=== PATIENT | female | born 1995 | race American Indian/Alaskan Native ===

== ENCOUNTER 2016-12-17 01:07 | Emergency (ER) | payer OTHER ==
[2016-12-17 02:22] VITALS: BMI 38.6
[2016-12-17] MEDS ORDERED: Lactated Ringer's 1,000 ML IV ONE (02:24)
[2016-12-17 02:44] LABS: RBC URINE 1 /hpf (0-3); URINE BACTERIA RARE (<OCC); URINE BILIRUBIN NEGATIVE (NEGATIVE); URINE BLOOD NEGATIVE (NEGATIVE); URINE COLOR Yellow (YELLOW); URINE GLUCOSE (UA) NORMAL (Normal); URINE KETONE TRACE mg/dL (NEGATIVE); URINE LEUKOCYTE ESTERASE NEG Leu/uL (Negative); URINE PROTEIN 1+ mg/dL (NEGATIVE); URINE UROBILINOGEN NORMAL mg/dL (0.2-1.0); WBC URINE 4 /hpf (0-5)
--- NOTE | 2017-01-03 20:05 | OBHP ---
Datetime: 12/17/2016 02:27 IP Adm Impression: , intrauterine ; No Active Labor; Intact Membranes IP Admit Plan: Observation/Evaluation; Discharge home Admit Comment, IP Provider: 21 yo , LMP unsure, JONATHAN 01/12/17, EGA 36w 2d c/o Ctx "all day", w orsened at 2300 hours; pain scale 6/10. Now, 8/10. Described as constant pressure with intermitent sh javier pain. (+) AFM; Denies LOF, VB. Last had sexual intercourse 2 days ago. care: Dr. Isaura brooks; last visit 12/16/16. 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 Denies STIs PMH: bronchitis, first diagnosed 2009 PSH: D_C NKDA Meds: PNV Soc Hx: denies tobacco, illicit drug or EtOH use. With FOB x 2 years. Lives with her mother Fam Hx: Mother alive 46 - HTN. Father alive 50 - HTN. MGM - alive - Breast CA survivor P.E.: as above. Obese, in NAD. Awake, alert, oriented to time, person and place. Pleasant and coop erative. Accompanied by FOB and her mother Assessment: 21 yo P0010, 36w 2d, no cervical dilatation; R/O UTI. Category 1 tracing. Clinically s table. Plan: 1) U/A 2) IV hydration 3) Observe U/A: negative Discharge patient home - reviewed S/S PTL - Keep all scheduled appointments Will advise Dr. Ribeiro Pelvic Type - PN: Adequate Extremities - PN: Normal Abdomen - PN: Normal Back - PN: Normal Breast - PN: Not Done Lungs - PN: Normal Heart - PN: Normal Thyroid - PN: Not Done Neurologic - PN: Normal HEENT - PN: Normal General - PN: Normal Presentation-Admit: Vertex FHR - Baseline A Provider: 130 Contraction Comments Provider: occasional Comments, ACOG Physical Exam: Skin: warm, dry, intact HEENT: full ROM Lungs: CTA bilaterally Cardiac: RRR, normal S1, S2 Abdomen: Gravid. Soft. +/- suprapubic tnederness : no masses or discharge Extremities: trace pedal edema bilaterally, no calf tenderness All other systens reviewed and are negative Gestation - Est Wks by US: 36w 2d Vital Signs Provider: Reviewed NICHD Variability Prov Fetus A: Moderate 6-25bpm NICHD Accel Fetus A IP Provider: 15X15 FHR Category Provider Fetus A: Category I NICHD Decel Fetus A IP Provider: None Dilatation, Provider: FT Effacement, Provider: 0 Station, Provider: high Genitourinary Exam: Normal DTRs - PN: Not Done
== END 2016-12-17 03:18 | disposition home or self-care (01) ==
LOC: C.EROB 01:07
DX: O47.03 False labor before 37 completed weeks of gestation, third trimester (principal); Z3A.36 36 weeks gestation of pregnancy
CPT/HCPCS: 81001; 99283; J7120

== ENCOUNTER 2017-01-03 20:12 | Emergency (ER) | payer OTHER ==
[2017-01-03 20:24] VITALS: BMI 39.3
--- NOTE | 2017-01-03 20:53 | OBHP ---
Datetime: 01/03/2017 20:46 IP Adm Impression: Term, intrauterine ; No Active Labor IP Admit Plan: Discharge home Admit Comment, IP Provider: chief complaint-contractions HPI [age] yo , LMP unsure, JONATHAN 01/12/17, EGA at 38.2 wga with c/o Ctx since last night.Marquis es vaginal bleeding or loss of fluid.reports (+) AFM; Denies LOF, VB. Was 1 cm dilated on last exam care: Dr. 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 Denies STIs PMH: bronchitis, first diagnosed 2009 PSH: D_C NKDA Meds: PNV Soc Hx: denies tobacco, illicit drug or EtOH use. With FOB x 2 years. Lives with her mother Fam Hx: Mother alive 46 - HTN. Father alive 50 - HTN. MGM - alive - Breast CA survivor P.E.: as above. Obese, in NAD. Awake, alert, oriented to time, person and place. Pleasant and coop erative. Accompanied by FOB and her mother Assessment: 21 yo P0010 at 38.2 wga.Patient states she was 1 cm dilated in office.Minimal change.D iscussed false labor -patient given active labor precautions Discussed with Dr Delarosa Pelvic Type - PN: Adequate Extremities - PN: Normal Abdomen - PN: Normal Back - PN: Normal Lungs - PN: Normal Heart - PN: Normal Neurologic - PN: Normal General - PN: Normal Contraction Comments Provider: ocassional Comments, ACOG Physical Exam: General nad abdomen gravid; non tender Vulva no lesions vagina no lesions Cervix 1-2/50/-2 Uterus garvid adnexa no adnexal tenderness Gestation - Est Wks by US: 38.5 IP Hx Assessment: The History has been Reviewed and is Current EGA AdmitDate IP: 38.5 Vital Signs Provider: Reviewed; Within Normal Limits IP Chief Complaint: Uterine contractions FHR Category Provider Fetus A: Category I Dilatation, Provider: 1-2 Effacement, Provider: 50 Station, Provider: -2 Genitourinary Exam: Normal DTRs - PN: Normal
--- NOTE | 2017-01-07 08:35 | OBPPN ---
Datetime: 01/07/2017 08:33 PP Pain Prov: Within normal limits PP Nausea Prov: Denies PP Flatus Prov: Yes PP Breasts Prov: Normal PP Heart Prov: Normal PP Lungs Prov: Normal PP Abdomen/Uterus Prov: Normal PP Lochia Prov: Normal PP Vulva/Perineum Prov: Normal PP CVA Tenderness Prov: Normal PP Extremities Prov: Normal PP Progress Prov: Normal PP Comments Phys Exam Prov: ABD: Soft, NT, BS- present UT- Firm PP Impression Prov: Normal progression PP Plan Prov: Discharge IP PP Procedures: Rhogam Vital Signs Provider PP: Reviewed Datetime: 01/06/2017 08:31 PP Progress Note Prov: S/P , CLinically STable. Plan: Continue care.
--- NOTE | 2017-01-07 08:36 | OBPPN ---
Datetime: 01/07/2017 08:33 PP Progress Note Prov: S/P , CLinically STable. PLan: Discharge.
--- NOTE | 2017-01-07 08:38 | OBDCSUM ---
Datetime: 01/07/2017 08:08 Discharged to, Provider: Home Follow up at, Provider: DR. Ribeiro Disch Instr Activity: May be up to bathroom; May be up for meals; May Shower Disch Instr Diet: Regular Discharge Diet restrict Prov: none Discharge Instructions, Provider: Routine instructions given Discharge Diagnosis, Provider: Term Delivered Discharge Time: 01/07/2017 11:00 Follow up in weeks, Provider: 6 weeks Disch Referrals: None Contraception discussed, Prov: Yes Disch Activity Restrictions: No lifting; No sexual activity; Nothing in vagina - [place], tampon s, douche Discharge Comment, Provider: S/P Uncomplicated , Clinically Stable Discharge Diagnosis Prov Other: S/P Uncomplicated , Clinically Stable Contraception after Delivery: Undecided
== END 2017-01-03 20:46 | disposition home or self-care (01) ==
LOC: C.EROB 20:12
DX: O47.1 False labor at or after 37 completed weeks of gestation (principal); Z3A.38 38 weeks gestation of pregnancy

== ENCOUNTER 2017-01-04 17:03 | Inpatient (IN) | payer OTHER ==
[2017-01-03 20:24] VITALS: BMI 39.3
--- NOTE | 2017-01-04 17:28 | OBADHP ---
Datetime: 01/04/2017 17:23 Admit Comment, IP Provider: at 38.6weeks came with ctxs started yesterday, irrg 06/27.pt was he re yesterday night for the same. obhx primi pmh denies med pnv all nkda psh denies soh denies ve /-3 a/p at 38.6weeks in labor admit to l_d npo/ivf labs cont ysabel and efm pain management anticipate Pelvic Type - PN: Adequate Extremities - PN: Normal Abdomen - PN: Normal Back - PN: Normal Breast - PN: Not Done Lungs - PN: Normal Heart - PN: Normal Thyroid - PN: Not Done Neurologic - PN: Normal HEENT - PN: Normal General - PN: Normal FHR - Baseline A Provider: 130 Contraction Comments Provider: q1-4 Comments, ACOG Physical Exam: gravid,non tender et no edema,no calf ten /-3 IP Hx Assessment: The History has been Reviewed and is Current Vital Signs Provider: Reviewed; Within Normal Limits IP Chief Complaint: Uterine contractions NICHD Variability Prov Fetus A: Moderate 6-25bpm NICHD Accel Fetus A IP Provider: 15X15 FHR Category Provider Fetus A: Category I Dilatation, Provider: 2 Effacement, Provider: 100 Station, Provider: -3 Genitourinary Exam: Normal DTRs - PN: Normal EGA AdmitDate IP: 38.6 IP Adm Impression: Term, intrauterine ; Active labor; Intact Membranes IP Admit Plan: Admit to unit; Initiate labor protocol Datetime: 01/03/2017 20:46 Gestation - Est Wks by US: 38.5 Datetime: 12/17/2016 02:27 Presentation-Admit: Vertex NICHD Decel Fetus A IP Provider: Oracio
[2017-01-04] MEDS ORDERED: Lactated Ringer's 1,000 ML IV SCH (17:30)
[2017-01-04] MEDS ORDERED: Nalbuphine 20 mg/ml Inj (1 ml) IVP PRN ×2 (17:45→23:45)
[2017-01-04 18:23] LABS: BASO # 0.1 K/uL (0.0-0.2); BASO % 0.5 % (0.0-2.0); EOS % 0.3 % (0.0-4.0); MEAN CORPUSCULAR HEMOGLOBIN 23.1 pg (27.0-31.0); MEAN CORPUSCULAR HGB CONC 32.6 g/dL (33.0-37.0); MEAN PLATELET VOLUME 7.7 fL (7.2-11.7); MONO # 1.3 K/uL (0.0-0.8); MONO % 8.8 % (0.0-10.0); RED CELL DISTRIBUTION WIDTH 15.6 % (11.5-14.5); WHITE BLOOD COUNT 15.2 K/uL (4.8-10.8)
[2017-01-04 18:29] LABS: CHLORIDE 104 mmol/L (98-107)
[2017-01-04 18:30] LABS: SODIUM 137 mmol/L (132-148)
[2017-01-04 18:31] LABS: POTASSIUM 3.7 mmol/L (3.6-5.2)
[2017-01-04 18:33] LABS: ALB/GLOB RATIO 1.1 (1.0-2.1); ALKALINE PHOSPHATASE 127 U/L (38-126); AST/SGOT 19 U/L (14-36); BILIRUBIN,TOTAL 0.2 mg/dL (0.2-1.3); BLOOD UREA NITROGEN 7 mg/dL (7-17); CARBON DIOXIDE 23 mmol/L (22-30); GFR AFRICAN-AMERICAN > 60; TOTAL PROTEIN 6.9 g/dL (6.3-8.3)
[2017-01-04 18:34] LABS: ALT/SGPT 24 U/L (9-52); CALCIUM 8.6 mg/dl (8.6-10.4); GLUCOSE,RANDOM 73 mg/dL (65-105)
[2017-01-04 18:40] LABS: RBC URINE 3 /hpf (0-3); URINE BACTERIA FEW (<OCC); URINE BILIRUBIN NEGATIVE (NEGATIVE); URINE BLOOD NEGATIVE (NEGATIVE); URINE COLOR Yellow (YELLOW); URINE GLUCOSE (UA) NORMAL (Normal); URINE KETONE NEGATIVE (NEGATIVE); URINE LEUKOCYTE ESTERASE 2+ Leu/uL (Negative); URINE PROTEIN NEGATIVE (NEGATIVE); WBC URINE 61 /hpf (0-5)
[2017-01-04] MEDS ORDERED: Nalbuphine 20 mg/ml Inj (1 ml) ONE (18:44)
--- NOTE | 2017-01-05 00:13 | OBPN ---
Datetime: 01/05/2017 00:10 IP Progress Impression: Normal progression of labor IP Procedures: Sterile Vag Exam FHR - Baseline A Provider: 130 IP Progress Note Comment: pt was examined at bed side ve 4/100/-3 nun/phen anticipate NICHD Accel Fetus A IP Provider: 15X15 FHR Category Provider Fetus A: Category I NICHD Variability Prov Fetus A: Moderate 6-25bpm Dilatation, Provider: 4 Effacement, Provider: 100 Station, Provider: -3 Datetime: 01/04/2017 17:23 IP Informed Consent Obtain: Vaginal Delivery Contraction Comments Provider: q1-4 Vital Signs Provider: Reviewed; Within Normal Limits Datetime: 01/03/2017 20:46 Gestation - Est Wks by US: 38.5 Datetime: 12/17/2016 02:27 Presentation-Admit: Vertex NICHD Decel Fetus A IP Provider: None
[2017-01-05] MEDS ORDERED: Oxytocin 30 UNIT 500 ML IV ONE (04:49)
[2017-01-05] MEDS ORDERED: Oxytocin 30 UNIT 500 ML IV PRN (05:00)
--- NOTE | 2017-01-05 07:57 | OBPN ---
Datetime: 01/05/2017 07:53 IP Progress Impression: Normal progression of labor; Reassuring heart rate IP Procedures: Artificial ROM IP Progress Plan: Continue present management; Augmentation Membranes, Provider: Ruptured Amniotic Fluid Color, Provider: Meconium, Light FHR - Baseline A Provider: 130 Gestation - Est Wks by US: 39.0 Presentation-Admit: Vertex IP Progress Note Comment: IUP at 39wks in Labor, Reassuring heart Rate Tracing Plan: Epidural Continue Monitoring. NICHD Accel Fetus A IP Provider: 15X15 FHR Category Provider Fetus A: Category I NICHD Variability Prov Fetus A: Moderate 6-25bpm NICHD Decel Fetus A IP Provider: None
[2017-01-05] MEDS ORDERED: Bupivacaine 0.125%/FentaNYL 200 ML EPI ONE (08:02)
--- NOTE | 2017-01-05 13:55 | OBDS ---
DELIVERY PERSONNEL Delivery Doctor: Conrad Ribeiro MD Anesthesiologist: Dr. Ribeiro MATERNAL INFORMATION Provider Comments: Uncomplicated Spontaneous vaginal delivery of a viable infant with weight o f 7Ibs 2 ozs and scores of 9 and 9. Light meconium staining. LABOR SUMMARY EDC: 01/12/2017 00:00 No. Babies in Womb: 1 Attempted: No Labor Anesthesia: Epidural LABOR INFORMATION Reason for Induction: Not Applicable Onset of Labor: 01/02/2017 17:00 Oxytocin: Augmentation Group B Beta Strep: Negative MEMBRANES Membranes Rupture Method: Artificial Rupture of Membranes: 01/05/2017 07:50 Length of Rupture (hrs): 5.83 Amniotic Fluid Color: Heavy Meconium Amniotic Fluid Amount: Moderate Amniotic Fluid Odor: Normal STAGES OF LABOR Stage 3 hrs: 0 Stage 3 min: 6 Total Time in Labor hrs: 68 Total Time in Labor min: 46 VAGINAL DELIVERY Episiotomy: None Laceration Extension: First Degree Other Laceration: periureathral 1cm non bleeding Laceration Repair: No Initial Vag Sponge Count: 10 Final Vag Sponge Count: 10 Initial Vag Sharps Count: 0 Final Vag Sharps Count: 0 Sponge Count Correct: Yes Sharps Count Correct: N/A BABY A INFORMATION Delivery Date/Time: 01/05/2017 13:40 Method of Delivery: Vaginal Born in Route : No : N/A Forceps: N/A Vacuum Extraction: N/A Shoulder Dystocia : No SHOULDER DYSTOCIA BABY A Delivery Date/Time: 01/05/2017 13:40 PRESENTATION/POSITION BABY A Presentation: Cephalic Cephalic Presentation: Vertex Vertex Position: Left Occipital Anterior Breech Presentation: N/A PLACENTA INFORMATION BABY A Placenta Delivery Time : 01/05/2017 13:46 Placenta Method of Delivery: Spontaneous Placenta Status: Delivered SCORES BABY A Heart Rate 1 min: >100 bpm Resp Effort 1 min: Good Cry Reflex Irritability 1 min: Cough or Sneeze or Pulls Away Muscle Tone 1 min: Active Motion Color 1 min: Body Oblong, Extremities Blue SCORE 1 MIN: 9 Heart Rate 5 min: >100 bpm Resp Effort 5 min: Good Cry Reflex Irritability 5 min: Cough or Sneeze or Pulls Away Muscle Tone 5 min: Active Motion Color 5 min: Body Oblong, Extremities Blue SCORE 5 MIN: 9 INFORMATION BABY A Gestational Age at Delivery: 39.0 Gestational Status: Term Infant Outcome : Liveborn Condition : Stable Infant Sex: Female IDENTIFICATION/MEDS BABY A ID Band Number: [id number] ID Band Location: Left Leg; Left Arm Sensor Applied: Yes Sensor Number: [id number] Sensor Location : Cord Clamp Vitamin K Given : Not Given Erythromycin Given: Not Given WEIGHT/LENGTH BABY A Birthweight (gms): 3245 Weight (lb): 7 Weight (oz): 2 Infant Length Inches: 20.00 Length cms: 50.8 CORD INFORMATION BABY A No. Cord Vessels: 3 Nuchal Cord : N/A Cord Blood Taken: Yes Suction: Mouth; Nose
[2017-01-06 07:17] LABS: BASO # 0.1 K/uL (0.0-0.2); BASO % 0.5 % (0.0-2.0); EOS # 0.1 K/uL (0.0-0.7); EOS % 0.8 % (0.0-4.0); HEMATOCRIT 30.9 % (34.0-47.0); LYMPH # 2.2 K/uL (1.0-4.3); LYMPH % 15.6 % (20.0-40.0); MEAN CELL VOLUME 72.2 fL (81.0-99.0); MEAN CORPUSCULAR HEMOGLOBIN 22.8 pg (27.0-31.0); MEAN CORPUSCULAR HGB CONC 31.6 g/dL (33.0-37.0); MEAN PLATELET VOLUME 7.7 fL (7.2-11.7); MONO # 1.4 K/uL (0.0-0.8); MONO % 9.6 % (0.0-10.0); RED CELL DISTRIBUTION WIDTH 16.3 % (11.5-14.5); WHITE BLOOD COUNT 14.3 K/uL (4.8-10.8)
[2017-01-06 16:10] VITALS: O2SAT 99
[2017-01-07 08:06] VITALS: BP 111/76; PULSE 72; RESP 18; TEMP 97.2
== END 2017-01-07 12:20 | disposition home or self-care (01) | DRG 775 ==
LOC: C.EROB 17:03 → C.4D 17:31 → C.4M 01-05 14:30
PROVIDERS: ADMIT Obstetrics & Gynecology; ATTEND Obstetrics & Gynecology
PROC: 10E0XZZ Delivery of Products of Conception, External Approach (ICD-10-PCS; principal; 2017-01-05)
PROC: 0HQ9XZZ Repair Perineum Skin, External Approach (ICD-10-PCS; 2017-01-05)
PROC: 10907ZC Drainage of Amniotic Fluid, Therapeutic from Products of Conception, Via Natural or Artificial Opening (ICD-10-PCS; 2017-01-05)
DX: O77.0 Labor and delivery complicated by meconium in amniotic fluid (principal); O41.1230 Chorioamnionitis, third trimester, not applicable or unspecified; O70.0 First degree perineal laceration during delivery; Z3A.39 39 weeks gestation of pregnancy; Z37.0 Single live birth

== ENCOUNTER 2018-02-18 01:29 | Emergency (ER) | payer OTHER, MEDICAID ==
[2018-02-18 01:30] VITALS: BMI 39.3
--- NOTE | 2018-02-18 01:46 | C.PDOC ---
History Of Present Illness 22 yo female, LNMP 06/19/17, 8 wks , no post- care, PMHx of seasonal allergy, come in for evaluation of body itchiness associated with throat irritation developed since 4 PM yesterday (02/17/18) after had Upper Sor[place] food. Pt sts, "took Benadryl at home and felt better, and then fell asleep. Woke up now, feeling congested and my throat feel more scratchy". Otherwise, pt denies fever, chills, recent illness, headache, dizziness, throat swelling or tightness, dyspnea, drooling, cough, wheezing, abd. pain, V/D, denies recent travel or known sick contact, denies previous hx of allergy. Ambulate to Ed for evaluation, not in resp distress. Time Seen by Provider: 02/18/18 01:32 Chief Complaint (Nursing): Allergic Reaction History Per: Patient Past Medical History Reviewed: Historical Data, Nursing Documentation, Vital Signs Vital Signs: Last Vital Signs Temp 98.1 F 02/18/18 03:45 Pulse 88 02/18/18 03:45 Resp 16 02/18/18 03:45 BP 128/78 02/18/18 03:45 Pulse Ox 97 02/18/18 03:45 - Medical History PMH: No Chronic Diseases - [facility] Procedures DELIVERY OF PRODUCTS OF CONCEPTION, EXTERNAL APPROACH (01/04/17) DRAINAGE OF AMNIOTIC FL, THERAP FROM POC, VIA OPENING (01/04/17) REPAIR PERINEUM SKIN, EXTERNAL APPROACH (01/04/17) Family History: States: Unknown Family Hx - Social History Hx Tobacco Use: No Hx Alcohol Use: No Hx Substance Use: No - Immunization History Hx Tetanus Toxoid Vaccination: No Hx Influenza Vaccination: No Hx Pneumococcal Vaccination: No Review Of Systems Except As Marked, All Systems Reviewed And Found Negative. Constitutional: Negative for: Fever, Chills Eyes: Negative for: Vision Change ENT: Positive for: Nose Discharge, Nose Congestion, Throat Pain. Negative for: Ear Discharge, Mouth Swelling Cardiovascular: Negative for: Chest Pain, Palpitations, Edema, Light Headedness Respiratory: Negative for: Cough, Shortness of Breath, Sputum, Wheezing Gastrointestinal: Negative for: Nausea, Vomiting, Abdominal Pain, Diarrhea Skin: Negative for: Rash Neurological: Negative for: Altered Mental Status, Headache, Dizziness Physical Exam - Physical Exam Appears: Well, Non-toxic, No Acute Distress Skin: Normal Color, Warm, Dry, No Rash Head: Normacephalic Eye(s): bilateral: PERRL Nose: No Flaring Oral Mucosa: Moist Tongue: No Swelling Lips: No Swelling Throat: No Drooling, Other (uvula midline, no edema.) Neck: Trachea Midline, Supple Cardiovascular: Rhythm Regular, No Murmur, No JVD, Other ((-) carotid bruits B/L ) Respiratory: No Decreased Breath Sounds, No Accessory Muscle Use, No Rales, No Stridor, No Wheezing Gastrointestinal/Abdominal: Soft, No Tenderness, Other (Gravid) Back: No CVA Tenderness Extremity: Normal ROM, No Pedal Edema, No Deformity, No Swelling Neurological/Psych: Oriented x3, Normal Speech ED Course And Treatment O2 Sat by Pulse Oximetry: 98 Pulse Ox Interpretation: Normal Progress Note: On re-evaluation, pt is afebrile, hemodynamicaly stable. Non- toxic. Tolerate Po well in ED. PuslEOx 98% RA. Neck: Supple, (-) JVD, (-) carotid bruits B/L. ENT: no acute findings. Uvula midline, no edema. Lungs: CTA B/L, BS equal B/L. ABd: Gravid. Neurologicaly intact. Pt has clinical findings c/w food allergy, late . results review with patient, recommend transfer to L&D for further evaluation/monitoring. Pt agrees with plan. Pt is stable for transfer to L&D now. Disposition - Disposition Disposition: HOME/ ROUTINE Disposition Time: 03:03 Condition: STABLE Forms: [facility] (Eritrean) - Clinical Impression Clinical Impression: , Angioedema
[2018-02-18] MEDS ORDERED: DiphenhydrAMINE 50 mg/ml Inj ONE ×2 (01:52→02:34)
[2018-02-18] MEDS ORDERED: DiphenhydrAMINE 50 mg/ml Inj IVP STA (01:59)
[2018-02-18] MEDS ORDERED: Sodium Chloride 0.9% 1,000 ML IV ONE (02:25)
[2018-02-18] MEDS ORDERED: Sodium Chloride 0.9% 1,000 ML ONE (02:40)
--- NOTE | 2018-02-18 04:40 | OBHP ---
Datetime: 02/18/2018 04:31 IP Adm Impression: , intrauterine IP Chief Complaint Other: nst Admit Comment, IP Provider: at 31+weeks edc 04/16/18 ?? by lmp conor for nst fafter allergic reac tion to upper sorbian food, no ctxs,vb, lof+fm obhx 1 x pmh de med nv all nkda psh de soch de ve closed a/p at 31+weks her for nst for allergic reaction dc home ptl given po hy f/u in dr robles office Pelvic Type - PN: Adequate Extremities - PN: Normal Abdomen - PN: Normal Back - PN: Normal Breast - PN: Normal Lungs - PN: Normal Heart - PN: Normal Thyroid - PN: Normal Neurologic - PN: Normal HEENT - PN: Normal General - PN: Normal FHR - Baseline A Provider: 130 Contraction Comments Provider: none Vital Signs Provider: Reviewed; Within Normal Limits NICHD Variability Prov Fetus A: Moderate 6-25bpm NICHD Decel Fetus A IP Provider: None Dilatation, Provider: 0 Effacement, Provider: 0 Station, Provider: -3 Genitourinary Exam: Normal DTRs - PN: Normal
[2018-02-18 06:48] VITALS: O2SAT 98
[2018-02-18 09:37] VITALS: BP 105/57; PULSE 87; RESP 18; TEMP 97
== END 2018-02-18 03:50 | disposition home or self-care (01) ==
LOC: C.EROB 01:29 → C.ER 01:29 → C.EROB 03:50
DX: T78.3XXA Angioneurotic edema, initial encounter (principal); O26.891 Other specified pregnancy related conditions, first trimester; Z3A.08 8 weeks gestation of pregnancy; Z36.89 Encounter for other specified antenatal screening
CPT/HCPCS: 96374; 96375; 99284; J1200; J2930; J7030

== ENCOUNTER 2018-09-04 12:44 | Emergency (ER) | payer OTHER ==
[2018-09-04 12:44] VITALS: BMI 43.9
[2018-09-04 12:57] VITALS: RESP 18
[2018-09-04 13:38] LABS: HCG,QUALITATIVE URINE NEGATIVE (NEGATIVE)
[2018-09-04 13:41] LABS: GRANULAR CAST 7 /lpf (0-1); SQUAMOUS EPITHIAL 2 /hpf (0-5); URINE BACTERIA RARE (<OCC); URINE BILIRUBIN NEGATIVE (NEGATIVE); URINE BLOOD NEGATIVE (NEGATIVE); URINE CLARITY Clear (Clear); URINE COLOR Yellow (YELLOW); URINE GLUCOSE (UA) NORMAL (Normal); URINE LEUKOCYTE ESTERASE NEG Leu/uL (Negative); URINE PROTEIN NEGATIVE (NEGATIVE); URINE UROBILINOGEN NORMAL mg/dL (0.2-1.0)
--- NOTE | 2018-09-04 14:12 | C.PDOC ---
History Of Present Illness 23 year old female presents to the ED complaining of colicky abdominal pain and chronic constipation. Reports she typically eats only one meal per day consisting of pasta or a sandwich. Notes weight gain but denies any fever, chills, n/v/d, or any urinary symptoms. Time Seen by Provider: 09/04/18 12:56 Chief Complaint (Nursing): Abdominal Pain History Per: Patient History/Exam Limitations: no limitations Onset/Duration Of Symptoms: Days Associated Symptoms: Constipation. 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 Constitutional: Positive for: Other (poor sleep, not resful, ++ snoring, ? apnea, no weight loss with minimal PO intake). Negative for: Fever, Chills Gastrointestinal: Positive for: Abdominal Pain, Constipation. Negative for: Nausea, Vomiting, Diarrhea Genitourinary: Negative for: Dysuria, Hematuria Physical Exam - Physical Exam Appears: Non-toxic, Other (tall, large, morbidly obese ) Skin: Warm, Dry, No Rash Head: Normacephalic Eye(s): bilateral: Normal Inspection Nose: Normal Oral Mucosa: Moist Neck: Supple Chest: Symmetrical Cardiovascular: Rhythm Regular Respiratory: Normal Breath Sounds, No Rales, No Rhonchi, No Wheezing Gastrointestinal/Abdominal: Soft, No Tenderness, No Distention, No Guarding, No Rebound Extremity: Normal ROM Neurological/Psych: Oriented x3, Normal Speech Gait: Steady ED Course And Treatment - Laboratory Results Lab Interpretation: Normal (ua neg.) Urine POC: Negative O2 Sat by Pulse Oximetry: 98 - Radiology CXR: Interpreted by Me CXR Interpretation: Yes: Heart Size, Other (+ biventricular hypertrophy) - Other Rad abd x 2 X-Ray: Interpreted by Me (+FOS), Read By Radiologist Interpretation: IMPRESSION: Hypoinflation. Moderate constipation. Reevaluation Time: 14:47 Reassessment Condition: Improved Medical Decision Making Medical Decision Making: Impression: constipation Plan - Abd XR - UA - HCG Patient education on laxative and diet/exercise. Patient given follow up instructions for suspect EULOGIO (morbid obesity, poor sleep, + snoring, + small OP) . Given referral for sleep study. Instructed to return to ER if symptoms worsen or new symptoms arise. Disposition Doctor Will See Patient In The: Office Counseled Patient/Family Regarding: Studies Performed, Diagnosis - Disposition Referrals: [facility] [Outside] [facility] [Outside] [facility] [Outside] [facility] [Outside] Monty Lennon MD [Staff Provider] - Disposition: HOME/ ROUTINE Disposition Time: 14:48 Condition: GOOD Additional Instructions: constipation: trial a laxitive now recommend drink a bottle of Mag Citrate now, and re-evaluate your abdominal discomfort after using the bathroom 2-3 times diet and exercise changes power walk 45 min/day x 5 days/week drink plenty of water Occasional laxatives as needed. Suspected Sleep Apnea: Call Dr. Lennon- Critical Care and Sleep Psychiatric Security Nurse Call his office to make an appointment for a Sleep Study in the next 3-4 weeks as able Instructions: Snoring , Constipation in Adults, High Fiber Diet, Obstructive Sleep Apnea, Adult (DC) Forms: [facility] (Persian) - Clinical Impression Clinical Impression: Colicky RUQ abdominal pain, Snoring
--- NOTE | 2018-09-04 15:00 | RAD ---
Date of service: 09/04/2018 PROCEDURE: Radiographs of the chest and abdomen (obstructive series) HISTORY: R abd colic, constipation COMPARISON: None available. TECHNIQUE: AP radiograph of the chest, with upright and supine radiographs of the abdomen. FINDINGS: Examination limited by habitus and hypoinflation. CHEST: Heart size appears within normal limits. Hypoinflation. No focal consolidation, significant pleural effusion, or definite pneumothorax. ABDOMEN AND PELVIS: Nonobstructive bowel gas pattern. Moderate constipation. No definite free air. Degenerative changes. Mild curvature of the lumbar spine convex to the left. IMPRESSION: Hypoinflation. Moderate constipation.
[2018-09-04 15:02] VITALS: BP 121/74; PULSE 74; TEMP 97.5
[2018-09-04 17:48] VITALS: O2SAT 98
== END 2018-09-04 14:54 | disposition home or self-care (01) ==
LOC: C.ER 12:44
DX: R10.11 Right upper quadrant pain (principal); R06.83 Snoring